=== PATIENT | female | born 2000 | race Caucasian/White ===

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

== ENCOUNTER 2018-06-21 21:13 | Emergency (ER) | payer MEDICAID, OTHER ==
[2018-06-21] MEDS ORDERED: IPRATROPIUM/ALBUTEROL 3 ML DEYVIAL IH ONE (21:49)
[2018-06-21] MEDS ORDERED: ACETAMINOPHEN/CODEINE 300/30MG TAB PO ONE (21:49)
[2018-06-21] MEDS ORDERED: DEXAMETHASONE 4 MG TAB PO ONE (21:49)
--- NOTE | 2018-06-21 21:50 | EDPHY ---
H & P Time Seen by Provider: 06/21/18 21:39 HPI/ROS: CHIEF COMPLAINT: Cough for over 2 weeks HISTORY OF PRESENT ILLNESS: Patient is a 18-year-old female with no significant past medical history here with her mother with chief complaint of worsening cough the last 2 weeks. States she has been unable to take a deep breath for over 2 days. Her cough was initially productive but then has become dry over the last few days. Pain and coughing is worse with deep respiration. She has no history of pulmonary embolism. She has no hemoptysis. She has no history of asthma. She takes no prescribed medication and uses no illicit drugs. REVIEW OF SYSTEMS: Constitutional: No fever, no chills. Eyes: No discharge. ENT: No sore throat. Cardiovascular: No chest pain, no palpitations. Respiratory: + cough, + shortness of breath. Gastrointestinal: No abdominal pain, no vomiting. Genitourinary: No hematuria. Musculoskeletal: No back pain. Skin: No rashes. Neurological: No headache. Smoking Status: Never smoked Physical Exam: General Appearance: Alert and no distress. Eyes: Pupils equal and round no injection. Respiratory: Chest is nontender, lungs are clear to auscultation. + dry cough Cardiac: regular rate and rhythm. Gastrointestinal: Abdomen is soft and nontender, no masses, bowel sounds normal. Musculoskeletal: Neck is supple and nontender. Extremities have full range of motion and are nontender. Skin: No rashes or lesions. Constitutional: Initial Vital Signs Temperature (C) 36.7 C 06/21/18 21:17 Heart Rate 98 06/21/18 21:17 Respiratory Rate 20 06/21/18 21:17 Blood Pressure 149/95 H 06/21/18 21:17 O2 Sat (%) 99 06/21/18 21:17 O2 Delivery Mode Room Air Allergies/Adverse Reactions: doxycycline Allergy (Verified 06/21/18 21:16) Home Medications: Medication Instructions Recorded Acetaminophen with Codeine 1 each PO Q6 #12 tab 06/21/18 [Tylenol #3] Albuterol Hfa Anes Only [Proair 2 puffs IH QID #1 mdi 06/21/18 Hfa Icu (*)] Azithromycin [Zithromax] 250 mg PO DAILY #4 tab 06/21/18 Bcp 06/21/18 Medical Decision Making - Diagnostics Imaging Results: Imaging Impressions Chest X-Ray 06/21/18 21:43 Impression: No acute pulmonary disease. ED Course/Re-evaluation: 18-year-old female here with dry cough worsening for 2 weeks. Chest x-ray shows no focal infiltrate or effusion. She is perc rule negative for pulmonary embolism. Cough did improve significantly with oral Decadron, on DuoNeb and Tylenol with codeine. She feels comfortable with discharge home with follow up if she is worsening. We considered asthma, pulmonary embolism, pneumonia, bronchitis - Data Points Medications Given: Discontinued Medications Acetaminophen/Codeine Phosphate (Tylenol #3) 2 tab PO ONCE ONE Stop: 06/21/18 21:50 Last Admin: 06/21/18 21:52 Dose: 2 tab Albuterol Sulfate (Proventil Inh Prepack) 1 mdi TAKEHOME EDNOW ONE Stop: 06/21/18 22:51 Last Admin: 06/21/18 22:56 Dose: 1 mdi Albuterol/Ipratropium (Duoneb) 3 ml IH EDNOW ONE Stop: 06/21/18 21:50 Last Admin: 06/21/18 21:53 Dose: 3 ml Azithromycin (Zithromax) 500 mg PO EDNOW ONE PRN Reason: Protocol Stop: 06/21/18 22:42 Last Admin: 06/21/18 22:54 Dose: 500 mg Dexamethasone (Decadron) 10 mg PO EDNOW ONE Stop: 06/21/18 21:50 Last Admin: 06/21/18 21:53 Dose: 10 mg Departure - Departure Disposition: Home, Routine, Self-Care Clinical Impression: Cough Condition: Good Instructions: Albuterol (By breathing), Chronic Cough (ED) Additional Instructions: Use Tylenol with codeine as needed for cough. Additionally do 2 puffs of albuterol every 4-6 hours for the next 2 days. Follow up with her primary care physician to get discuss pulmonary function testing. Referrals: NONE *PRIMARY CARE P,. [Primary Care Provider] - As per Instructions Prescriptions: Acetaminophen with Codeine [Tylenol #3] 1 each PO Q6 #12 tab Albuterol Hfa Anes Only [Proair Hfa Icu (*)] 2 puffs IH QID #1 mdi Azithromycin [Zithromax] 250 mg PO DAILY #4 tab
[2018-06-21] MEDS ORDERED: AZITHROMYCIN 250 MG TAB PO ONE (22:41)
[2018-06-21] MEDS ORDERED: ALBUTEROL INH PREPACK MDI TAKEHOME ONE (22:50)
[2018-06-21 23:05] VITALS: BP 124/74
== END 2018-06-21 23:05 | disposition home or self-care (01) ==
DX: R05 Cough (principal)

== ENCOUNTER 2019-02-05 22:19 | Emergency (ER) | payer OTHER ==
--- NOTE | 2019-02-05 22:53 | EDPHY ---
H & P Stated Complaint: L middl finger reddness and swelling Source: Patient Exam Limitations: No limitations - Personal History LMP (Females 10-55): Irregular Current Tetanus/Diphtheria Vaccine: No Current Tetanus Diphtheria and Acellular Pertussis (TDAP): No Tetanus Vaccine Date: does not vaccinate - Medical/Surgical History Hx Asthma: Yes Hx Chronic Respiratory Disease: No Hx Diabetes: No Hx Cardiac Disease: No Hx Renal Disease: No Hx Cirrhosis: No Hx Alcoholism: No Hx HIV/AIDS: No Hx Splenectomy or Spleen Trauma: No Other PMH: salmonella, t12 fx, concussion x 2. 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 She denies biting her fingernails or trauma. She has no decreased range of motion, fevers, paresthesias. Reports that she is not vaccinated. Modifying Factors: None Comment: ROS: A comprehensive 10 system review of systems is otherwise negative aside from elements mentioned in the history of present illness. MEDICAL/SURGICAL/SOCIAL HISTORY: Medical history: salmonella, t12 fx, concussion x 2, whooping cough 2014. Takes oral control pills. Surgical history: Denies Social history: Student at [employer]. Drinks alcohol socially. Nonsmoker. CONSTITUTIONAL: Extremely anxious, tearful young adult white female, awake and alert, no obvious distress HEENT: Atraumatic and normocephalic, PERRL, EOMI. Nares patent; no rhinorrhea; no nasal mucosal edema. Tympanic membranes clear. Oropharynx clear, no exudate and moist pink mucosa. Airway patent. No lymphadenopathy. No meningismus. Cardiovascular: Normal S1/S2, regular rate, regular rhythm, without murmur rub or gallop. PULMONARY/CHEST: Symmetrical and nontender. Clear to auscultation bilaterally. Good air movement. No accessory muscle usage. ABDOMEN: Soft, nondistended, nontender, no rebound, no guarding, no peritoneal signs, no masses or organomegaly. No CVAT. EXTREMITIES: 2/2 radial pulses, pharmacy helper strength 5/5, left middle finger at the proximal nail fold shows erythema, edema and fluctuance. DI P/PIP/MCP joints have full range of flexion and extension. no clubbing, no cyanosis or edema. NEUROLOGICAL: no focal neuro deficits. GCS 15. SKIN: Warm and dry, no erythema. no rash. Good capillary refill. (Candis Owusu) Constitutional: Initial Vital Signs Temperature (C) 36.6 C 02/05/19 22:22 Heart Rate 105 H 02/05/19 22:22 Respiratory Rate 16 02/05/19 22:22 Blood Pressure 133/97 H 02/05/19 22:22 O2 Sat (%) 99 02/05/19 22:22 O2 Delivery Mode Room Air Allergies/Adverse Reactions: doxycycline Allergy (Verified 02/05/19 22:20) Home Medications: Medication Instructions Recorded Acetaminophen with Codeine 1 each PO Q6 #12 tab 06/21/18 [Tylenol #3] Albuterol Hfa Anes Only [Proair 2 puffs IH QID #1 mdi 06/21/18 Hfa Icu (*)] Azithromycin [Zithromax] 250 mg PO DAILY #4 tab 06/21/18 Bcp 06/21/18 Amoxicillin/Clavulanate Pot 875 mg PO BID #14 tab 02/05/19 [Augmentin 875 MG TAB (*)] Medical Decision Making Procedures: Procedure: Abscess drainage. The patient's abscess was located on the left middle finger nail full. I obtained verbal consent from the patient to drain the abscess who was informed about the possibility of bleeding and pain. The abscess was incised with #18 gauge and a 3 mL amount of purulent drainage was expressed. I irrigated the wound and placed bacitracin clean sterile dressing. The patient tolerated the procedure well. The procedure was performed by myself. (Candis Owusu) ED Course/Re-evaluation: Patient refuses tetanus booster as she is unvaccinated Local anesthesia provided and I&D performed Soaked in Betadine and warm water Bacitracin clean sterile dressing applied Given Augmentin in the ER and prescription for same Verbal and written wound care instructions provided No signs of neurovascular compromise/tenting of skin/compartment syndrome/ extremities and joints examined above and below area of concern and are neurovascularly intact/tenosynovitis. This patient was seen under the supervision of my secondary supervising physician. I evaluated and cared for this patient independently. (Candis Owusu) PHYSICIAN DOCUMENTATION: The patient was evaluated and managed by the Physician Health Care Analyst. My co- signature indicates that I have reviewed this chart and I agree with the findings and plan of care as documented. I am the secondary supervising physician. (Elvira Walters) Differential Diagnosis: Differential diagnosis includes but is not limited to close fist infection, hand cellulitis, hand deep space infection, [id number] disease, herpetic reynold, felon, flexor tenosynovitis, paronychia. (Candis Owusu) - Data Points Medications Given: Discontinued Medications Amoxicillin/Clavulanate Potassium (Augmentin 875mg) 875 mg PO EDNOW ONE PRN Reason: Protocol Stop: 02/05/19 22:55 Last Admin: 02/05/19 23:13 Dose: 875 mg Departure - Departure Disposition: Home, Routine, Self-Care Clinical Impression: Paronychia of finger of left hand Condition: Good Instructions: Paronychia (ED) Additional Instructions: Keep the dressing dry and in place for 48 hours. After 48 hours, you may remove the dressing; wash the site daily with mild soap and water; then pat dry. Apply topical antibiotic ointment and keep covered with sterile dressing until fully healed. Take Tylenol 650 mg every 4 hours and/or Ibuprofen 600 mg every 8 hours with food as needed for pain. Take antibiotic as directed. Do not skip a dose. Referrals: PATRICIA Retana,. [Clinic] - As per Instructions Prescriptions: Amoxicillin/Clavulanate Pot [Augmentin 875 MG TAB (*)] 875 mg PO BID #14 tab
[2019-02-05] MEDS ORDERED: AMOXICILLIN/CLAVULANATE POT 875/125 MG TAB PO ONE (22:54)
[2019-02-05 23:21] VITALS: BP 139/107
== END 2019-02-05 23:21 | disposition home or self-care (01) ==
PROC: 0H9GXZZ Drainage of Left Hand Skin, External Approach (ICD-10-PCS; principal; 2019-02-05)
DX: L03.012 Cellulitis of left finger (principal)